=== PATIENT | female | born 1980 | race Caucasian/White ===

== ENCOUNTER 2017-07-16 17:11 | Day surgery (SDC) | payer OTHER ==
[~2017-07-16 17:11] MED LIST: LACTATED RINGER'S 1,000 ML IV
[2017-07-16] MEDS ORDERED: PROPOFOL 20 ML ×3 (20:31→21:21)
[2017-07-16] MEDS ORDERED: FENTAnyl 50 MCG/ML VIAL (20:32)
[2017-07-16] MEDS ORDERED: METOCLOPRAMIDE 10 MG INJ (20:32)
[2017-07-16] MEDS ORDERED: ONDANSETRON 4 MG INJ (20:32)
[2017-07-16] MEDS ORDERED: MIDAZOLAM 1 MG/ML 2 ML INJ (20:32)
[2017-07-16] MEDS ORDERED: KETOROLAC 30 MG INJ (21:11)
[2017-07-16] MEDS ORDERED: HYDROmorphONE 1 MG/5 ML IV SYRINGE IV ×3 (21:30)
[2017-07-16] MEDS ORDERED: ONDANSETRON 4 MG INJ IV (21:30)
[2017-07-16] MEDS ORDERED: KETOROLAC 30 MG INJ IV (21:30)
[2017-07-16] MEDS ORDERED: EPHEDrine SULFATE 50 MG/5 ML SYG IV (21:30)
[2017-07-16] MEDS ORDERED: DIPHENHYDRAMINE 50 MG INJ IV (21:30)
[2017-07-16] MEDS ORDERED: MEPERIDINE 25 MG INJ IV (21:30)
[2017-07-16] MEDS ORDERED: OXYCODONE/ACETAMINOPHEN (5/325) TAB PO ×2 (21:30)
== END 2017-07-16 22:30 | disposition home or self-care (01) ==
LOC: SDS 17:11
DX: Z33.2 Encounter for elective termination of pregnancy (principal)
CPT/HCPCS: 59812